=== PATIENT | female | born 1985 | race Caucasian/White ===

== ENCOUNTER → 2016-07-05 | Outpatient (CLI) | payer OTHER ==
[~2016-07-05] MED LIST: ASCO10003; CHOL1000 PO; FLUO0.0566 TOP; PRENTAB26 PO; RANI150T3 PO
[2016-07-05 17:53] LABS: GTGD 50 Grams
== END | disposition home or self-care (01) ==
LOC: C.LAB1850 15:10
PROVIDERS: ATTEND Obstetrics & Gynecology
DX: Z34.03 Encounter for supervision of normal first pregnancy, third trimester (principal)

== ENCOUNTER → 2016-11-25 | Outpatient (CLI) | payer BC, OTHER | END | disposition home or self-care (01) | LOC: C.LABSPEC 15:00 | PROVIDERS: ATTEND Obstetrics & Gynecology | DX: Z34.03 Encounter for supervision of normal first pregnancy, third trimester (principal) ==

== ENCOUNTER 2016-12-17 23:58 | Inpatient (IN) | payer BC, OTHER ==
[~2016-12-17] VITALS: Ht 165.1 cm; Wt 148.6 kg
[2016-12-23] MEDS ORDERED: PRENTAB26 PO (15:52)
[2016-12-23] MEDS ORDERED: FLUO0.0566 TOP (15:54)
[2016-12-24] MEDS ORDERED: LACTATED RINGER'S 1000ML 1,000 ML IV PRN (08:12)
[2016-12-24] MEDS ORDERED: RANI150T3 PO (08:24)
[2016-12-24] MEDS ORDERED: CHOL1000 PO (08:25)
[2016-12-24] MEDS ORDERED: ASCO10003 (08:25)
[2016-12-24 08:32] VITALS: Ht 165.1 cm; Wt 148.6 kg
[2016-12-24 08:48] LABS: HEMATOCRIT 36.3 % (37-47); MEAN CELL VOLUME 87.3 fL (80-100); MEAN CORPUSCULAR HEMOGLOBIN 28.4 pg (25-34); MEAN CORPUSCULAR HGB CONC 32.5 g/dl (32-36); MEAN PLATELET VOLUME 9.6 fL (7.4-10.4); PLATELET COUNT 268 K/uL (130-400); RED BLOOD COUNT 4.16 M/uL (4.2-5.4); WHITE BLOOD COUNT 10.62 K/uL (4.8-10.8)
[2016-12-24] MEDS ORDERED: MISOPROSTOL 25 MCG TAB ONE (08:51)
[2016-12-24] MEDS ORDERED: LACTATED RINGER'S 1000ML 500 ML IV PRN ×2 (09:07→14:41)
[2016-12-24] MEDS ORDERED: OXYTOCIN 30 UNITS/500ML NSS IV PRN (09:15)
[2016-12-24] MEDS ORDERED: MISOPROSTOLTAB 50 MCG TAB PO SCH (09:15)
[2016-12-24] MEDS: LACTATED RINGER'S 1000ML 1,000 ML IV SCH ×4 (10:54→22:07)
--- NOTE | 2016-12-24 11:22 | Medical Student: [facility] ---
Med Student History & Physical Date of Service Dec 24, 2016. Chief Complaint Induction History of Present Illness Source: patient pt is a 31 yo F with TONI of 12/17/2016 by LMP at 41 weeks of GA presenting for induction. has been uncomplicated and followed by [facility]. Pt reports no regular contractions and no loss of fluid. There was some bleeding after lopez catheter placement attempt yesterday. Reports good movements. Plans on receiving an epidural for pain control. Blood type A negative, rubella immune, GBS negative, HBV negative, VDRL/RPR negative, C/G negative, 1 hr glucose 94 CBC (12/24/2016 0835) Hgb 11.2 Hct 36.3 MANAGER [employer] History menarche at age 10 , LMP 03/12/2016, no hx of abnormal pap smears Hx of metrorrhagia Past Medical History blepharitis, varicella, hyperlipidemia Family History Autoimmune disease (maternal side) Dementia (paternal grandfather) Hyperparathyroidism (paternal grandfather) Hyperlipidemia (paternal grandmother) Social History Smoking Status: Never Smoker Alcohol Use: none Drug Use: none Marital Status: Allergies Coded Allergies: Animal Dander (Verified Allergy, Severe, RASH, 12/24/16) Grass (Verified Allergy, Severe, respiratory, 12/24/16) POLLEN (Verified Allergy, Severe, respratory, 12/24/16) Uncoded Allergies: sunlight (Allergy, Severe, HIVES, 12/24/16) trees (Allergy, Severe, respiratory, 12/24/16) Home Medications Ascorbic Acid (Vitamin C) Cholecalciferol (Vitamin D3), 1 TAB PO DAILY Fluocinonide (Fluocinonide), 1 APPLN TOP Multivit/Min/Iron/Fol Ac/Pren ( Vitamin), 1 TAB PO DAILY Ranitidine Hcl (Zantac), 150 MG PO DAILY Review of Systems Constitutional: No fever, No chills Eyes: No worsening of vision ENT: No hearing loss Respiratory: No cough, No shortness of breath Cardiovascular: No chest pain Abdomen: No pain, No nausea, No vomiting Genitourinary - Female: No dysuria Physical Exam General Appearance: WD/WN, no apparent distress Respiratory/Chest: chest non-tender, lungs clear, normal breath sounds, no respiratory distress Cardiovascular: regular rate, rhythm Abdomen / GI: non tender, soft Extremities: + pedal edema Skin: normal color, warm/dry cervix exam performed by Dr. Villatoro : 1.5/50/-2 Monitoring External Monitor: Baseline HR 140, moderate variability, accelerations presents, no decelerations. category 1 Tocodynamometer: every 2 to 3 minutes Laboratory Results 12/24/16 08:35 Test 12/24/16 08:35 Red Blood Count 4.16 M/uL (4.2-5.4) Mean Corpuscular Volume 87.3 fL (80-100) Mean Corpuscular Hemoglobin 28.4 pg (25-34) Mean Corpuscular Hemoglobin Concent 32.5 g/dl (32-36) RDW Standard Deviation 45.5 fL (36.4-46.3) RDW Coefficient of Variation 14.3 % (11.5-14.5) Mean Platelet Volume 9.6 fL (7.4-10.4) Assessment and Plan pt is a 31 yo F at 41 weeks GA with no complications. tracing category 1. - Admit to L&D. - Monitor mother and fetus with EFM and toco. - Place lopez catheter and begin IV pitocin for induction.
[2016-12-24] MEDS ORDERED: BUTORPHANOL TARTRATE 1 MG/ML VIAL ONE (11:54)
[2016-12-24] MEDS ORDERED: BUTORPHANOL TARTRATE 1 MG/ML VIAL IV PRN (12:00)
[2016-12-24] MEDS ORDERED: FENTANYL 2MCG/ML ROPIV 1.25MG/ML 100ML BAG EPI ONE (13:16)
[2016-12-24] MEDS ORDERED: BUPIVACAINE 0.25% 30 ML VIAL ONE (13:16)
[2016-12-24] MEDS ORDERED: EpHEDrine SULFATE INJ 50 MG/ML AMP ONE (13:16)
[2016-12-24] MEDS: FENTANYL CITRATE INJ 50 MCG/1 ML 2 ML VIAL ONE ×2 (13:26→14:38)
[2016-12-24] MEDS ORDERED: NALOXONE HCL INJ 1 MG in SODIUM CHLORIDE 0.9% 1000ML 1,000 ML IV PRN (14:41)
[2016-12-24] MEDS ORDERED: DiphenhydrAMINE HCL 50 MG/ML VIAL IV PRN (14:45)
[2016-12-24] MEDS ORDERED: NALOXONE HCL INJ 0.4 MG/1 ML VIAL/CARP IV PRN (14:45)
[2016-12-24] MEDS ORDERED: EpHEDrine SULFATE INJ 50 MG/ML AMP IV PRN (14:45)
[2016-12-24] MEDS ORDERED: NALBUPHINE HCL INJ 10 MG/ML AMP IV PRN (14:45)
[2016-12-24] MEDS ORDERED: ONDANSETRON INJ 2 MG/ML 2 ML VIAL IV PRN (14:45)
[2016-12-24] MEDS: FENTANYL 2MCG/ML ROPIV 1.25MG/ML 100ML BAG EPI PRN ×2 (21:42→22:50)
[2016-12-25] MEDS ORDERED: DIPHTHERIA/TETANUS/PERTUSSIS 0.5 ML SYR/VIAL IM. ONE
[2016-12-25] MEDS ORDERED: ACETAMINOPHEN/CODEINE 300/30MG TAB PO PRN ×2
[2016-12-25] MEDS ORDERED: SUPERCREAM 0.870 % 15GM JAR EXT PRN
[2016-12-25] MEDS ORDERED: OXYTOCIN 30 UNITS/500ML NSS IV PRN
[2016-12-25] MEDS ORDERED: ACETAMINOPHEN 325 MG TAB PO PRN
[2016-12-25] MEDS ORDERED: LANOLIN OINT EXT PRN ×2
[2016-12-25] MEDS ORDERED: HYDROCORTISONE ACETATE 25 MG SUPP PR PRN
[2016-12-25] MEDS ORDERED: MISOPROSTOL 200 MCG TAB PR ONE
[2016-12-25] MEDS ORDERED: BENZOCAINE 20% AER SPR 82.5 GM CAN EXT PRN
--- NOTE | 2016-12-25 | Vaginal Delivery Summary ---
Vaginal Delivery Summary Patient dilated to complete and pushed to deliver a viable male Apgars 8 and 9 via over a small second-degree perineal laceration. Mouth and nose bulb suctioned at the perineum. Loose nuchal 1 reduced at the perineum. Shoulders and body delivered with ease. vigorous and crying at . Cord clamped and at approximate 30 seconds of life and to maternal abdomen. Cord then doubly clamped and cut. Placenta delivered spontaneously and intact, 3 vessel cord. Hemostasis inadequate with dilute Pitocin and drainage of the bladder under sterile conditions of approximately 100 cc. Lower uterine segment was not well contracted and therefore 800 g of rectal Cytotec was administered. The uterus was swept 1 with no retained products noted. Cervix and sulci intact. Laceration repaired in usual fashion using 3-0 Vicryl. EBL 300 cc. Mother and baby stable in recovery. Cord blood and cord gases sent.
[2016-12-25] MEDS ORDERED: MISOPROSTOL 200 MCG TAB ONE (00:01)
[2016-12-25] MEDS ORDERED: OXYTOCIN INJ 20 UNITS in LACTATED RINGER'S 1000ML 1,000 ML IV SCH (00:15)
--- NOTE | 2016-12-25 01:18 | Anesthesia Procedure Note ---
Anesthesia Epidural Removal Nt Date & Time Dec 25, 2016 at 01:18 Vital Signs Pain Intensity: 0.0 Notes Mental Status: alert / awake / arousable, participated in evaluation Nausea / Vomiting: adequately controlled Pain: adequately controlled Airway Patency, RR, SpO2: stable & adequate BP & HR: stable & adequate Hydration State: stable & adequate Neuraxial Anesthesia: was administered Anesthetic Complications: no major complications apparent, pt satisfied with anesthetic care Epidural: removed without complications, with tip intact
[2016-12-25 03:10] VITALS: BP 124/82; PULSE 97; TEMP 37
[2016-12-25] MEDS: IBUPROFEN 600 MG TAB PO PRN ×3 (03:11→20:08)
--- NOTE | 2016-12-25 06:29 | OB/GYN Progress Note ---
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 Subjective conversation w/ patient, physical exam, chart review Ambulation: limited ambulation Voiding: no voiding problems Diet Tolerance: Regular Diet Lochia: Moderate Feeding Type: Breast Feeding Pain: 0/10 Review of Systems Constitutional: No fever Respiratory: No shortness of breath Cardiac: No chest pain Abdomen: No nausea, No vomiting Female : No dysuria Objective Vital Signs Date Time Temp Pulse Resp B/P (MAP) Pulse Ox O2 Delivery O2 Flow Rate FiO2 12/25/16 03:10 Room Air 12/25/16 03:10 37.0 97 18 124/82 (96) Room Air Physical Exam General Appearance: WELL-APPEARING Respiratory/Chest: lungs clear, normal breath sounds, no respiratory distress Cardiovascular: regular rate, rhythm Abdomen: normal bowel sounds, non tender, soft Fundus: Firm, Relation to Umbilicus (1 inch above ) Extremities: non-tender, + pedal edema (1+ petal edema) Laboratory Results Last 24 Hours Test 12/24/16 08:35 12/25/16 04:44 White Blood Count 10.62 K/uL Red Blood Count 4.16 M/uL Hemoglobin 11.8 g/dL Hematocrit 36.3 % Mean Corpuscular Volume 87.3 fL Mean Corpuscular Hemoglobin 28.4 pg Mean Corpuscular Hemoglobin Concent 32.5 g/dl RDW Standard Deviation 45.5 fL RDW Coefficient of Variation 14.3 % Platelet Count 268 K/uL Mean Platelet Volume 9.6 fL Medications Current Inpatient Medications Medications (Trade) Dose Ordered Sig/Demian Route Start Time Stop Time Status Last Admin Dose Admin Ranitidine HCl (zANTac TAB) 150 mg DAILY PO 12/25/16 08:00 01/24/17 07:59 Oxytocin (Pitocin IV) 30 units UD PRN IV 12/25/16 00:00 01/24/17 00:00 Benzocaine (Dermoplast Aero Spr) 1 appln PRN PRN EXT 12/25/16 00:00 01/24/17 00:00 Cocaine HCl (Supercream 0.870% Cr) BID PRN EXT 12/25/16 00:00 01/08/17 00:00 Hydrocortisone Acetate (Anusol Hc Supp) 25 mg BID PRN HI 12/25/16 00:00 01/24/17 00:00 Lanolin (Lanolin Oint) PRN PRN EXT 12/25/16 00:00 01/24/17 00:00 Ibuprofen (Motrin Tab) 600 mg Q4H PRN PO 12/25/16 00:00 01/24/17 00:00 12/25/16 03:11 600 MG Acetaminophen (Tylenol Tab) 650 mg Q6H PRN PO 12/25/16 00:00 01/24/17 00:00 Acetaminophen/ Codeine Phosphate (Tylenol w/ Codeine #3 Tab) 1 tab Q4H PRN PO 12/25/16 00:00 01/24/17 00:00 Acetaminophen/ Codeine Phosphate (Tylenol w/ Codeine #3 Tab) 2 tab Q4H PRN PO 12/25/16 00:00 01/24/17 00:00 Docusate Sodium (coLACE CAP) 100 mg BID PO 12/25/16 08:00 01/24/17 07:59 Oxytocin 20 units/ Lactated Ringer's 1,002 ml @ 125 mls/hr Q8H1M IV 12/25/16 00:15 12/25/16 16:16 12/25/16 00:40 125 MLS/HR Assessment and Plan Post- Day Number: 1 Continue Routine Care: A/P: This is a 31 y/o female, , s/p induced normal vaginal delivery for prolonged . She is ambulating and clinically stable. Plan: - Vitals signs are reviewed and WNL (Tmax 36.8 ) - Last Hgb is 11.8 --> post delivery pending - Blood type A-, GBS neg, Rubella Immune - Routine care - Encourage ambulation, monitor and control pain with medication as needed, continue with regular diet as tolerated and monitor lochia - Stool softeners and sitz bath recommended - Encourage breast feeding and educate about breast feeding Resident Physician Supervision Note: I was present with Dr. Page during the history and exam. I discussed the case with the resident and agree with the findings and plan as documented in the note. Any exceptions or clarifications are listed here: pt doing well. no bleeding issues. routine care. rhogam eval. breast feeding. Documented By: Ivon Villatoro Resident Involvement: Resident Care Provided Care Provided: OB Delivery
[2016-12-25 06:56] LABS: HEMATOCRIT 32.5 % (37-47)
[2016-12-25 09:10] VITALS: BP 115/98; PULSE 83; TEMP 36.5
[2016-12-25] MEDS: RANITIDINE HCL 150 MG TAB PO SCH (09:19)
[2016-12-25] MEDS: DOCUSATE SODIUM 100 MG CAP PO SCH ×2 (09:53→20:08)
[2016-12-25 14:00] VITALS: BP 120/80; PULSE 84; TEMP 36.8
[2016-12-25 16:05] VITALS: BP 123/71; PULSE 89; TEMP 36.5; O2SAT 98
[2016-12-25 20:10] VITALS: BP 147/73; PULSE 91; TEMP 36.6
[2016-12-26 00:10] VITALS: BP 130/73; PULSE 88; TEMP 36.6
[2016-12-26] MEDS: IBUPROFEN 600 MG TAB PO PRN ×2 (00:10→08:23)
--- NOTE | 2016-12-26 06:32 | OB/GYN Progress Note ---
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 Subjective conversation w/ patient, physical exam, chart review Ambulation: ambulating normally Voiding: no voiding problems Diet Tolerance: Regular Diet Lochia: Small Feeding Type: Breast Feeding Pain: 2/10 controlled with ibuprofen Review of Systems Constitutional: No fever Respiratory: No shortness of breath Cardiac: No chest pain Abdomen: No nausea, No vomiting Female : No dysuria Objective Vital Signs Date Time Temp Pulse Resp B/P (MAP) Pulse Ox O2 Delivery O2 Flow Rate FiO2 12/26/16 00:10 36.6 88 20 130/73 (92) Room Air 12/26/16 00:10 Room Air 12/25/16 20:10 36.6 91 20 147/73 (97) Room Air 12/25/16 16:05 36.5 89 20 123/71 (88) 98 Room Air 12/25/16 16:05 98 Room Air 12/25/16 14:00 36.8 84 20 120/80 (93) Room Air 12/25/16 09:10 36.5 83 20 115/98 (104) Room Air 12/25/16 09:10 Room Air 12/25/16 07:00 Room Air Physical Exam General Appearance: WELL-APPEARING Respiratory/Chest: lungs clear, normal breath sounds, no respiratory distress Cardiovascular: regular rate, rhythm, no murmur Abdomen: normal bowel sounds, non tender, soft Fundus: Firm, Relation to Umbilicus (3 finger breaths below umbilicus) Extremities: non-tender, normal inspection, + pedal edema (1+ ) Laboratory Results Last 24 Hours Test 12/25/16 06:35 Hemoglobin 10.6 g/dL Hematocrit 32.5 % Medications Current Inpatient Medications Medications (Trade) Dose Ordered Sig/Demian Route Start Time Stop Time Status Last Admin Dose Admin Ranitidine HCl (zANTac TAB) 150 mg DAILY PO 12/25/16 08:00 01/24/17 07:59 12/25/16 09:19 150 MG Oxytocin (Pitocin IV) 30 units UD PRN IV 12/25/16 00:00 01/24/17 00:00 Benzocaine (Dermoplast Aero Spr) 1 appln PRN PRN EXT 12/25/16 00:00 01/24/17 00:00 Cocaine HCl (Supercream 0.870% Cr) BID PRN EXT 12/25/16 00:00 01/08/17 00:00 Hydrocortisone Acetate (Anusol Hc Supp) 25 mg BID PRN MA 12/25/16 00:00 01/24/17 00:00 Lanolin (Lanolin Oint) PRN PRN EXT 12/25/16 00:00 01/24/17 00:00 Ibuprofen (Motrin Tab) 600 mg Q4H PRN PO 12/25/16 00:00 01/24/17 00:00 12/26/16 00:10 600 MG Acetaminophen (Tylenol Tab) 650 mg Q6H PRN PO 12/25/16 00:00 01/24/17 00:00 Acetaminophen/ Codeine Phosphate (Tylenol w/ Codeine #3 Tab) 1 tab Q4H PRN PO 12/25/16 00:00 01/24/17 00:00 Acetaminophen/ Codeine Phosphate (Tylenol w/ Codeine #3 Tab) 2 tab Q4H PRN PO 12/25/16 00:00 01/24/17 00:00 Docusate Sodium (coLACE CAP) 100 mg BID PO 12/25/16 08:00 01/24/17 07:59 12/25/16 20:08 100 MG Assessment and Plan Post- Day Number: 2 Continue Routine Care: A/P: This is a 31 y/o female, , PPD# 2 s/p induced normal vaginal delivery for prolonged . She is ambulating and clinically stable to discharge. - Vital signs are reviewed and WNL (Tmax 37) - Last Hgb 10.6 - Blood type A- (Rhogam received at 28 wks gestation), GBS neg, Rubella Immune - No signs of depression. - Routine care - Discussed resting, feeding, pain control, mastitis, control, follow up in 6 weeks and reasons to call sooner, if necessary. - Continue with pain medication as needed, and continue vitamins. - Encourage breast feeding and educate about breast feeding - Patient understands and keen for home. - Plan to discharge home Resident Physician Supervision Note: I interviewed and examined the patient. Discussed with Dr. Page and agree with findings and plan as documented in the note. Any exceptions or clarifications are listed here: baby Rh (-) Documented By: Bi Reynolds Resident Involvement: Resident Care Provided Care Provided: OB Delivery
--- NOTE | 2016-12-26 06:56 | Discharge Instructions ---
Discharge Instructions Date of Service Dec 26, 2016. Admission Reason for Admission: Induction Discharge Discharge Diagnosis / Problem: after delivery Discharge Goals Goal(s): Routine recovery after delivery Medications Continue Dispensed Medications: supercream, dermaplast, tucks, lansinoh Activity Recommendations Activity Limitations: per Instructions/Follow-up section . Instructions / Follow-Up Instructions / Follow-Up ACTIVITY RECOMMENDATIONS: * Gradual return to full activity over the next 2-3 weeks. * No lifting - nothing heavier than baby over the next 2-3 weeks. * Do not engage in vigorous exercise, sexual activity or sports until cleared by your physician. * Do not drive or operate any motorized equipment until cleared by your physician. * You may shower/bathe daily. MEDICATIONS: For discomfort or pain, you may use Acetaminophen (Tylenol), Ibuprofen (Advil), or Naproxen (Aleve) following the package directions. For constipation you may use Colace following the package directions. BREAST CARE: If you are not breast feeding: * Wear a supportive bra 24 hours a day for one to two weeks. * Avoid stimulating your breasts and nipples as much as possible during the first few weeks after delivery. * When taking a shower, have the warm water hit your back, not breasts. * When your breasts feel full, apply ice packs. Usually three to four times a day helps ease the discomfort. * Take a mild pain medication (Tylenol / Motrin) when you are uncomfortable. If breast feeding: * Use breast milk to lubricate nipples. Lansinoh cream may be used for sore nipples. You do not need to remove cream prior to breast feeding. If using a different brand of cream, check the label for directions regarding removal of cream prior to nursing. * Wear a supportive bra. * If having problems with breasts or breast feeding, call a bank consultant or your health care provider. EPISIOTOMY CARE: After delivery, if you have an episiotomy (stitches), the following steps will ease discomfort and aid healing. * For the first 24 hours after delivery, place ice packs next to your episiotomy to help reduce swelling. * After the first 24 hour-period, sitz baths, either portable or in the tub, are suggested. A shower with a shower arm sprayed over the episiotomy may be comforting. * Nuris care should be done after each voiding and bowel movement. Squirt warm water from a plastic bottle over the perineum (region of the body between the anus and urinary opening) and pat dry. * Use Dermoplast to ease discomfort. Shake container. [place] directly over the episiotomy. Place a Tucks on a clean sanitary pad next to your episiotomy. SPECIAL CARE INSTRUCTIONS: When you are discharged from the hospital, it is important for you to follow the instructions listed below: * During the first week at home, you should be able to care for yourself and your baby. In addition, the usual light household activities are encouraged. * Limit your activities to the way you feel. Do not try to clean the house or move furniture. Be sensible. * If you actively engage in sports and have done so up until the time of your delivery, you may resume these activities as soon as you feel able. This may take up to one month or even longer. Use good judgment. * Continue to take your vitamins for at least six weeks after the of your baby. * Your diet need not be limited unless you were on a special diet before your delivery. Breast-feeding mothers need around 2500 calories per day and at least 64-80 ounces of fluid per day (8 to 10 glasses). * You should eat foods from the four major food groups. Crash diets or fad diets are to be avoided. Eating lean meats, fresh fruits and vegetables, low-fat dairy products, high fiber foods and a regular exercise program, will help you get back to your pre- weight without putting your health at risk. * Constipation is sometimes a problem after delivery. Take a mild laxative as needed. If breast feeding, Milk of Magnesia is acceptable to use. You may use a suppository or Fleets enema if no episiotomy. * A daily shower or tub bath is suggested. Be sure to thoroughly and gently dry the perineum. * A bloody vaginal discharge will usually continue until around four weeks post . A small amount of bleeding may continue for as long as six weeks. Vaginal discharge changes from the bright red bleeding after delivery to pink then brownish and finally yellowish-pink before becoming white and disappearing. * Bleeding may increase with activity. Your first period may come in 4-8 weeks. If you are breast feeding, your period may be delayed even longer. * Laurel (sex) can begin whenever both you and your partner feel comfortable and do not have any form of genital infection. It is recommended that you wait at least six weeks for internal and external healing to occur. If you have questions, please talk to your health care practitioner. A condom should be used to prevent infection and . * Foreplay, gentle intercourse and lubrication is very important the first several times to prevent pain. A water-based lubricant such as K-Y jelly or Astroglide may be used. * If you have RH negative blood and your baby is RH positive, you will receive RHOGAM by injection prior to discharge. The nurse will give you a card to keep with you that has the date and place that you received RHOGAM after delivery. * During your care, you had a Rubella screen done to check for the presence of rubella antibodies in your blood. If your test was negative, you will receive a Rubella vaccine prior to discharge. This vaccine may cause a fever, soreness at the injection site and flu-like symptoms. If these symptoms persist, notify your health care practitioner. is not advised for one month after a Rubella vaccine. * Verbalizes understanding of car seat law as reviewed with patient nursing. * Car Seat hand-out given and reviewed with patient by nursing. * Shaken baby information reviewed with patient by nursing. Call you doctor if: * Heavy bleeding (saturating several pads an hour) or passing clots the size of your fist. * A fever >101 degrees F (38.3 degrees C) on two occasions four hours apart and /or chills. * Unusual pain in the pelvic or vaginal areas. * "Baby Blues" lasting longer than two weeks. If you have any questions or concerns, call your health care practitioner at . FOLLOW UP VISIT: * Please call the office at to schedule a 6 week examination. It is important you keep this appointment. It is important for you to make arrangements for either yearly or twice yearly check-ups thereafter. Current Hospital Diet Patient's current hospital diet: Regular OB Diet Discharge Diet Recommended Diet: Regular Diet Pending Studies Studies pending at discharge: no Medical Emergencies . Who to Call and When: Medical Emergencies: If at any time you feel your situation is an emergency, please call [phone] immediately. . Non-Emergent Contact Non-Emergency issues call your: Slide Fastener Chain Assembler . . "Provider Documentation" section prepared by Maryellen Page. . VTE Core Measure Inpt VTE Proph given/why not?: Treatment not indicated
[2016-12-26 08:00] VITALS: BP 142/83; PULSE 86; TEMP 36.7; O2SAT 99
[2016-12-26] MEDS: RANITIDINE HCL 150 MG TAB PO SCH (08:24)
[2016-12-26] MEDS: DOCUSATE SODIUM 100 MG CAP PO SCH (08:24)
[2016-12-26 13:01] VITALS: BP_DIAS 83; PULSE 86; TEMP 36.7
== END 2016-12-26 13:05 | disposition home or self-care (01) | DRG 775 ==
LOC: C.LD 12-24 07:43 → C.OBG 12-25 02:23
PROVIDERS: ADMIT Obstetrics & Gynecology; ATTEND Obstetrics & Gynecology
PROC: 0KQM0ZZ Repair Perineum Muscle, Open Approach (ICD-10-PCS; principal; 2016-12-24)
PROC: 3E033VJ Introduction of Other Hormone into Peripheral Vein, Percutaneous Approach (ICD-10-PCS; principal; 2016-12-24)
PROC: 0U7C7ZZ Dilation of Cervix, Via Natural or Artificial Opening (ICD-10-PCS; principal; 2016-12-24)
PROC: 10E0XZZ Delivery of Products of Conception, External Approach (ICD-10-PCS; principal; 2016-12-24)
PROC: 3E0P7GC Introduction of Other Therapeutic Substance into Female Reproductive, Via Natural or Artificial Opening (ICD-10-PCS; principal; 2016-12-24)
PROC: 4A1H7CZ Monitoring of Products of Conception, Cardiac Rate, Via Natural or Artificial Opening (ICD-10-PCS; principal; 2016-12-24)
PROC: 10H073Z Insertion of Monitoring Electrode into Products of Conception, Via Natural or Artificial Opening (ICD-10-PCS; principal; 2016-12-24)
DX: O48.0 Post-term pregnancy (principal); Z68.43 Body mass index [BMI] 50.0-59.9, adult; O99.214 Obesity complicating childbirth; E66.01 Morbid (severe) obesity due to excess calories; O76 Abnormality in fetal heart rate and rhythm complicating labor and delivery; O69.81X0 Labor and delivery complicated by cord around neck, without compression, not applicable or unspecified; O77.0 Labor and delivery complicated by meconium in amniotic fluid; O99.62 Diseases of the digestive system complicating childbirth; K21.9 Gastro-esophageal reflux disease without esophagitis; O70.1 Second degree perineal laceration during delivery; Z79.899 Other long term (current) drug therapy; Z37.0 Single live birth; Z3A.41 41 weeks gestation of pregnancy; Z67.11 Type A blood, Rh negative

== ENCOUNTER 2016-12-23 14:50 | Outpatient (CLI) | payer BC, OTHER ==
[~2016-12-23] VITALS: Ht 165.1 cm; Wt 149.0 kg
[2016-12-23 15:46] VITALS: Ht 165.1 cm; Wt 149.0 kg
[2016-12-23] MEDS ORDERED: PRENTAB26 PO (15:52)
[2016-12-23] MEDS ORDERED: FLUO0.0566 TOP (15:54)
[2016-12-24] MEDS ORDERED: RANI150T3 PO (08:24)
[2016-12-24] MEDS ORDERED: ASCO10003 (08:25)
[2016-12-24] MEDS ORDERED: CHOL1000 PO (08:25)
--- NOTE | 2017-01-01 11:52 | EDITING REQUIRED CODING QUERY ---
DIAGNOSIS NEEDED To promote full compliance with coding requirements relating to patient care, physician participation is requested in all cases of material handling technician uncertainty. Please assist us with the question(s) below: Please clarify below regarding the cervical dilator insertion for 12/23/16: ( ) Cervical dilator was inserted during this visit ( XX ) Cervical dilator was not inserted during this visit ( ) Other, please clarify: Thank you for your assistance, Dagmar Sandra - Photo Optics Technician
== END 2016-12-23 16:46 | disposition home or self-care (01) ==
LOC: C.OPB 14:50 → C.LD 14:50 → C.OPB 16:46
PROVIDERS: ATTEND Obstetrics & Gynecology
DX: O48.0 Post-term pregnancy (principal); Z3A.41 41 weeks gestation of pregnancy